=== PATIENT | female | born 1950 | race Caucasian/White ===

== ENCOUNTER → 2017-07-24 | Outpatient (CLI) | payer OTHER, BC ==
[~2017-07-24] MED LIST: LEVO50TA PO
[2017-07-24 12:56] LABS: BLOOD UREA NITROGEN 21 mg/dl (7-18); BUN/CREATININE RATIO 20.3 (10-20); CALCIUM 9.4 mg/dl (8.5-10.1); CARBON DIOXIDE 29 mmol/L (21-32); CHLORIDE 105 mmol/L (98-107); CHOLESTEROL 261 mg/dl (0-200); CREATININE 1.01 mg/dl (0.60-1.20); GLUCOSE 94 mg/dl (70-99); POTASSIUM 3.9 mmol/L (3.5-5.1); SODIUM 138 mmol/L (136-145); TRIGLYCERIDES 71 mg/dl (0-150); VERY LOW DENSITY LIPOPROT CALC 14 mg/dl
[2017-07-24 13:06] LABS: CHOLESTEROL/HDL RATIO 3.8; HDL CHOLESTEROL 69 mg/dl; LDL CHOLESTEROL CALCULATED 178 mg/dl
== END | disposition home or self-care (01) ==
LOC: C.LABPVFM 07:47
PROVIDERS: ATTEND Nurse Practitioner
DX: E78.5 Hyperlipidemia, unspecified (principal); E03.9 Hypothyroidism, unspecified

== ENCOUNTER → 2017-09-02 | Outpatient (CLI) | payer OTHER, BC ==
--- NOTE | 2017-09-03 15:09 | MAMMOGRAPHY REPORT ---
BILATERAL DIGITAL SCREENING MAMMOGRAM TOMOSYNTHESIS WITH CAD: 09/02/2017 CLINICAL HISTORY: Routine screening. Patient has no complaints. TECHNIQUE: Breast tomosynthesis in addition to standard 2D mammography was performed. Current study was also evaluated with a Computer Aided Detection (CAD) system. COMPARISON: Comparison is made to exams dated: 08/13/2016 mammogram, 08/04/2015 mammogram, 4 mammogram, 07/29/2013 mammogram, 07/28/2012 mammogram, and 07/23/2011 mammogram - [facility]. BREAST COMPOSITION: The tissue of both breasts is heterogeneously dense, which may obscure small mas ses. FINDINGS: The parenchymal pattern is unchanged. No developing mass, architectural distortion or clus ter of suspicious microcalcifications is seen in either breast. IMPRESSION: ACR BI-RADS CATEGORY 2: BENIGN There is no mammographic evidence of malignancy. A 1 year screening mammogram is recommended. The pa tient will receive written notification of the results. Approximately 10% of breast cancers are not detected with mammography. A negative mammographic report should not delay biopsy if a clinically suggestive mass is present. Cece Martínez M.D. ay/:09/02/2017 14:55:17 Replenishment Specialist: Malorie MAN(Monet)(M), [facility] letter sent: Normal 1/2 BI-RADS Code: ACR BI-RADS Category 2: Benign
== END | disposition home or self-care (01) ==
LOC: C.MAMM 14:25
PROVIDERS: ATTEND Nurse Practitioner
DX: Z12.31 Encounter for screening mammogram for malignant neoplasm of breast (principal)

== ENCOUNTER 2018-12-01 05:03 | Inpatient (IN) ==
--- NOTE | 2018-10-29 10:06 | Anesthesiology Consultation ---
Date of Service October 29, 2018 Assessment & Plan (1) Encounter for pre-operative examination: Chart Review Chart Review: Acceptable Risk for Surgery and Patient seen in Pre Admission Testing Consults Requested none Teaching & Discussion Pre-Anesthesia Teaching/Discussion Notes: Instructed NPO after midnight before surgery, except medications with 15 cc of water. Medication instructions provided according to the PAT guidelines. History Surgery Operation Date: 12/01/18 08:50 Proposed Procedures p Left Knee Arthroplasty Uni Compartment versus Total Knee Replacement - Kenneth Duong MD Height/Weight Height: 5 ft 2 in Weight: 59 kg Allergies Allergy/AdvReac Type Severity Reaction Status Date / Time No Known Allergies Allergy Verified 10/23/18 10:54 Medications Home Medications Medication Instructions Recorded Confirmed Last Taken latanoprostene bunod [Vyzulta] 1 drp OPL PM 10/23/18 10/23/18 Unknown levothyroxine 50 mcg PO QAM 10/23/18 10/23/18 Unknown multivitamin 1 tab PO DAILY 10/23/18 10/23/18 Unknown Past Medical History Medical History Cancer SKIN CANCER ON SCALP Glaucoma EYE DROPS LEFT EYE (PREVENTATIVE) Hypothyroidism Lyme disease Treated with doxycycline and steroid (July 2018) Osteoarthritis Ovarian cyst HX Past Surgical History Surgical History Family history of reaction to anesthesia FATHER-DELIRIUM AFTER ANESTHESIA IN HIS 90'S SHORTLY BEFORE PASSING AWAY H/O laparoscopy Ovarian cysts removed bilaterally H/O shoulder surgery RT History of anesthesia reaction SINCE SHOULDER SURGERY (20 YRS AGO) EARS HAVE BEEN RINGING EVERY SINCE. History of appendectomy History of colonoscopy History of tooth extraction Past Anesthesia History No Hx of Anesthesia Complications and No Family Hx of Anesthesia Complications (SEE ABOVE - Dad had delerium in his 90's after anesthesia. ) History of PONV Yes (Thinks so, but unsure. ) Motion Sickness Screening History of Motion Sickness: No Social History Smoking Status: Never smoker Do You Dip or Chew Tobacco: No Hx Alcohol Use: Yes Alcohol type: beer, wine and hard liquor alcohol intake frequency: holidays/special occasions only Hx Substance Use: No substance use type: does not use Exercise / Class Metabolic Activity II 4-5 Yardwork/Stairs/Walk up hill (Golfs, Kayaks, Gardens, In winter does aerobics daily. Able to climb FOS. Denies CP or SOB. ) Review of Systems Patient denies chest pain, shortness of breath, dyspnea on exertion, reflux, cough, wheezing, palpitations. +Joint pain (Knee) Physical Exam Vital Signs BP: 113/67 P: 62 R: 16 T: 98.1 SPO2: 99% on RA ENMT Thyromental Distance: < 3.5 Finger Breadths (3) Mallampati Class: II Neck normal visual inspection and trachea midline; neck extension not limited Respiratory normal respiratory effort Auscultation: lungs clear to auscultation bilaterally Cardiovascular Rate/Rhythm: regular rate and regular rhythm Heart Sounds: no murmur Vessels: no carotid bruit Neurologic moves all extremities Psychiatric Orientation: alert and oriented x 3 Testing Electrocardiogram Date: 10/29/18 Findings: + NSR @ (61) Chest X-Ray Date: 10/29/18 Findings: + NAD Other Testing Carotid Dopplers 01/05/13: Bilateral intimal thickening and minimally raised heterogeneous plaque in the bifurcation. No hemodynamically significant stenosis, however, is demonstrated bilaterally. Laboratory Results 10/29/18 10:44 10/29/18 10:44 Blood Type A Positive 10/29/18 10:44 Antibody Screen NEGATIVE 10/29/18 10:44 PT 10.3 Seconds (9.0-12.0) 10/29/18 10:44 INR 1.0 (0.9-1.1) 10/29/18 10:44 APTT 25.9 Seconds (21.0-31.0) 10/29/18 10:44
--- NOTE | 2018-10-29 10:32 | PAT Medication Instructions ---
Medication Instructions Date of Service October 29, 2018 Home Medications latanoprostene bunod [Vyzulta] 1 drp OPL PM levothyroxine 50 mcg PO QAM multivitamin 1 tab PO DAILY DO NOT take the morning of surgery multivitamin 1 tab PO DAILY Take morning of surgery With a small sip of water, OTHERWISE NOTHING TO EAT OR DRINK AFTER MIDNIGHT: levothyroxine 50 mcg PO QAM Take evening before surgery latanoprostene bunod [Vyzulta] 1 drp OPL PM Other Notes If you have any questions please call us at [phone] or [phone] or [phone] or [phone]
--- NOTE | 2018-10-29 11:09 | XRay Report ---
XR chest Pre-admission PA/Lat CLINICAL HISTORY: Preoperative chest COMPARISON STUDY: No previous studies for comparison. FINDINGS: The cardiac and mediastinal contours are normal. There is no evidence of focal pulmonary co nsolidation. There is no evidence of failure. No pleural effusions are visualized.[ IMPRESSION: No active disease in the chest. Electronically signed by: Mitch Kwong M.D. 10/29/2018 11:08 AM
[2018-10-29 11:20] LABS: Basophils # (auto) 0.04 K/uL (0-0.2); Basophils % (auto) 0.6 %; Eosinophils % (auto) 1.4 %; Hematocrit (blood only) 41.8 % (37-47); Hemoglobin 13.9 g/dL (12.0-16.0); Immature Granulocytes # (auto) 0.02 K/uL (0.00-0.02); Immature Granulocytes % (auto) 0.3 %; Lymphocytes # (auto) 1.55 K/uL (1.2-3.4); Lymphocytes % (auto) 22.2 %; Mean Corpuscular Hgb Conc 33.3 g/dL (32-36); Mean Corpuscular Volume 89.3 fL (80-100); Mean Platelet Volume 9.8 fL (7.4-10.4); Monocytes # (auto) 0.48 K/uL (0.11-0.59); Monocytes % (auto) 6.9 %; Neutrophils # (auto) 4.78 K/uL (1.4-6.5); Neutrophils % (auto) 68.6 %; Platelet Count 316 K/uL (130-400); RDW Coefficient of Variation 13.9 % (11.5-14.5); RDW Standard Deviation 45.7 fL (36.4-46.3); Red Blood Count 4.68 M/uL (4.2-5.4); White Blood Count 6.97 K/uL (4.8-10.8)
[2018-10-29 11:31] LABS: Partial Thromboplastin Time 25.9 Seconds (21.0-31.0); Prothrombin Time 10.3 Seconds (9.0-12.0)
[2018-10-29 11:46] LABS: BUN Creatinine Ratio 15.7 (10-20); Calcium 9.2 mg/dl (8.5-10.1); Creatinine Clr Calc Pharmacy 48.9 ml/min; Est GFR (African American) 79.3; Est GFR (Non-African American) 68.5; Potassium 4.3 mmol/L (3.5-5.1)
--- NOTE | 2018-11-28 11:34 | History and Physical Report ---
DATE OF ADMISSION: 12/01/2018 CHIEF COMPLAINT: Left knee pain and discomfort. HISTORY OF PRESENT ILLNESS: A 68-year-old female who presents for surgical treatment of her left knee. She has had a several year history of increased left knee pain and discomfort and recurrent and rupturing Desouza cyst. Pain is mostly medial, but some posterior. The cyst occasionally ruptures and bothers her for several months. She has difficulty bending or squatting. She has difficulty going up and down stairs. She likes to garden and has difficulty bending and doing outside activities. The more she walks, the more it hurts. She has had this Desouza cyst drained on several occasions by her son who is a sheet metal worker [place] She would like to proceed with more definitive treatment. PAST MEDICAL HISTORY: 1. Hypothyroidism. 2. Basal cell skin cancer. PREVIOUS SURGERIES: Include: 1. Ovarian cyst removal. 2. Appendectomy. 3. Fibroid removal. 4. Shoulder surgery. ALLERGIES: None. CURRENT MEDICATIONS: 1. Levoxyl. 2. Vyzulta eye drops. SOCIAL HISTORY: A 68-year-old female. She lives in [place]. Quite active. Enjoys gardening. She is . Rare alcohol intake. Two children. One son is a sheet metal worker maintenance. No smoking history. FAMILY HISTORY: Significant for heart disease and skin cancer. REVIEW OF HISTORY: Negative for diabetes, neurologic problems, vascular problems or bleeding disorders. No chest pain or shortness of breath. No history of DVT or PE. No known bleeding problems. PHYSICAL EXAMINATION: GENERAL: Reveals a healthy pleasant, middle-aged female. Looks to be in excellent health. HEENT: Benign. NECK: Supple. No lymphadenopathy. LUNGS: Clear to auscultation. HEART: Regular rate and rhythm. ABDOMEN: Soft, nontender, nondistended. EXTREMITIES: Grossly neurovascularly intact except as follows: Examination of left knee reveals patient ambulates independently. She does not really have any significant limp. She has got slight varus alignment to her knee. She does have a moderate-sized knee effusion. She is tender over the medial joint line. Fairly minimal Desouza cyst on exam posteriorly. No varus or valgus instability. Range of motion 0-125. Her ACL is intact. X-RAYS: X-rays of the left knee are reviewed. It shows fairly advanced medial compartment arthritis. She has got near complete loss of her medial joint space. The remainder of the knee looks pretty good. With lateral stress testing, the medial side opens up and lateral side is well maintained. ASSESSMENT: A 68-year-old white female with a several year history of increasing left knee pain and discomfort consistent with medial compartment arthritis. She has failed conservative treatment and would like to proceed with surgical management. She is really interested in doing a partial knee replacement. PLAN: We are going to take her to the operating room and plan on doing a partial knee replacement. If we get in there and it is too bad, we will do a full knee replacement. The risks and benefits of partial versus full knee replacement were explained to the patient and include but not limited to DVT, PE, , infection, neurological injury, vascular injury, bleeding problems, pain, limited range of motion, stiffness, failure to relieve her symptoms, incomplete relief of symptoms, need for further surgery in future, fracture, leg length inequality, nerve palsy, dislocation, and need for further surgery. The patient understands and desires to proceed. Informed consent was obtained.
[2018-12-01] MEDS ORDERED: BUPIVACAINE LIPOSOME/PF 266 MG, BUPIVACAINE/EPINEPHRINE 50 ML, SODIUM CHLORIDE 0.9% 30 ... INFIL SCH (06:00)
[2018-12-01] MEDS ORDERED: METOCLOPRAMIDE HCL 10 MG TABLET PO SCH (06:00)
[2018-12-01] MEDS ORDERED: CEFAZOLIN 2000MG 2,000 MG/15 ML SYR IV SCH (06:00)
[2018-12-01] MEDS ORDERED: GABAPENTIN 300 MG PO SCH (06:00)
[2018-12-01] MEDS ORDERED: FAMOTIDINE 20 MG TAB PO SCH (06:00)
[2018-12-01] MEDS ORDERED: LR 60ML/HR IV SCH (06:00)
[2018-12-01] MEDS ORDERED: SCOPOLAMINE 1.5 MG TDSY TD SCH (06:00)
[2018-12-01] MEDS ORDERED: LR 500ML BOLUS, THEN 15ML/HR IV SCH (06:00)
[2018-12-01] MEDS ORDERED: ACETAMINOPHEN 500 MG TAB PO SCH (06:00)
[2018-12-01] MEDS ORDERED: BACITRACIN INJ 50,000 UNIT VIAL ONE (06:27)
[2018-12-01] MEDS ORDERED: BUPIVACAINE LIPOSOME 1.3% 266 MG/20 ML VIAL ONE (06:27)
[2018-12-01] MEDS ORDERED: SODIUM CHLORIDE 0.9% PF 50 ML VIAL ONE (06:27)
[2018-12-01] MEDS ORDERED: BUPIVACAINE 0.25% 30 ML VIAL ONE (06:29)
[2018-12-01] MEDS ORDERED: ROPIVACAINE 0.5% 5 MG/ML 30 ML VIAL ONE (06:30)
[2018-12-01] MEDS ORDERED: BUPIVACAINE 0.5 % 5 MG/1 ML PF 10ML VIAL ONE (06:30)
[2018-12-01] MEDS ORDERED: TRANEXAMIC ACID 1,000 MG **IV Intra-op IV SCH (06:30)
[2018-12-01] MEDS ORDERED: ONDANSETRON INJ 2 MG/ML 2 ML VIAL IV PRN ×2 (06:46→09:47)
[2018-12-01] MEDS ORDERED: ePHEDrine sulfate 50 MG/ML AMP IV PRN (06:46)
[2018-12-01] MEDS ORDERED: ATROPINE SULFATE 0.1 MG/ML 10ML SYR IV PRN (06:46)
[2018-12-01] MEDS ORDERED: HYDROmorphone INJ 1 MG/ML SYRINGE IV PRN (06:46)
[2018-12-01] MEDS ORDERED: KETOROLAC TROMETHAMINE 15 MG/ML VIAL IV PRN (06:46)
[2018-12-01] MEDS ORDERED: PHENYLEPHRINE 100MCG/ML 5ML SYR IV PRN (06:46)
[2018-12-01] MEDS ORDERED: fentaNYL citrate 100 MCG/2 ML VIAL ONE ×2 (06:47→07:53)
[2018-12-01] MEDS ORDERED: MIDAZOLAM HCL 1 MG/ML 2ML VIAL ONE ×2 (06:47→07:52)
--- NOTE | 2018-12-01 06:49 | History & Physical Bridge Note ---
Date of Service December 01, 2018 History & Physical Bridge Note I have examined the patient, reviewed the History & Physical and in the interval since the performance of the History & Physical I have noted the following changes of clinical significance: no changes noted
[2018-12-01] MEDS ORDERED: ONDANSETRON INJ 2 MG/ML 2 ML VIAL ONE (07:24)
[2018-12-01] MEDS ORDERED: LIDOCAINE HCL 2% 2 ML VIAL/AMP(20MG/ML) INFIL ONE (07:24)
[2018-12-01] MEDS ORDERED: PROPOFOL IV EMULSION 10 MG/ML 20 ML VIAL IV ONE (07:24)
--- NOTE | 2018-12-01 08:46 | Post Operative Brief Note ---
Immediate Post Op Note v1 Date of Surgery December 01, 2018 Pre & Post Diagnosis Operation Date: 12/01/18 07:00 Pre-Op Diagnosis: Knee Degenerative Joint Disease , Left Post-Op Diagnosis: Knee Degenerative Joint Disease, Left Procedure Operation Date: 12/01/18 07:00 Actual Procedures p Left Knee Arthroplasty Uni Compartment(Left) - Kenneth Duong MD Surgeon Kenneth Duong MD Resist Coater Developer Opal, PAC Estimated Blood Loss 30 Findings Consistent with Post-Op Diagnosis Specimens Left Knee Drains Sotelo Catheter (16 fr sotelo placed by Dr. Duong without difficulty with return clear yellow urine output to be monitored by anesthesia.) Anesthesia Type Spinal MAC Complications none Disposition Accompanied Patient To Recovery: No Disposition: Recovery Room
--- NOTE | 2018-12-01 09:15 | XRay Report ---
XR knee LT 2V routine CLINICAL HISTORY: Surgical Post Op COMPARISON: 07/07/2018 DISCUSSION: There are postsurgical changes of a medial joint compartment arthroplasty. There are over lying skin jens. There is air within the soft tissues consistent with the history of recent surger y. IMPRESSION: Postsurgical changes of a medial joint compartment arthroplasty. Electronically signed by: Mitch Kwong M.D. 12/01/2018 9:13 AM
--- NOTE | 2018-12-01 09:29 | Anesthesiology Progress Note ---
Date of Service December 01, 2018 Anesthesia Post Procedure Vital Signs Vital Signs: Temp Pulse Pulse Resp BP Pulse Ox 12/01/18 09:20 58 L 20 142/78 H 93 12/01/18 09:14 36.6 C 98 12/01/18 09:10 58 L 15 105/68 98 12/01/18 09:00 60 15 100/67 96 12/01/18 08:52 37.3 C 71 16 99/69 L 96 12/01/18 05:30 36.5 C 62 18 144/68 H 97 Pain Intensity Left Knee: Pain Intensity: 0 Notes Mental Status: alert / awake / arousable Patient Amnestic to Procedure: Yes Nausea / Vomiting: adequately controlled Pain: adequately controlled Airway Patency, RR, SpO2: stable & adequate BP & HR: stable & adequate Hydration State: stable & adequate Neuraxial Anesthesia: was administered and sensory block is resolving Anesthetic Complications: no major complications apparent
[2018-12-01] MEDS ORDERED: ALUMINUM/MAGNESIUM SUSP 30 ML UDC PO PRN (09:47)
[2018-12-01] MEDS ORDERED: NALOXONE HCL 0.4 MG/1 ML VIAL/CARP IV PRN (09:47)
[2018-12-01] MEDS ORDERED: TRAMADOL HCL 50 MG TABLET PO PRN (09:47)
[2018-12-01] MEDS ORDERED: MULTIVITAMIN TAB PO SCH (09:47)
[2018-12-01] MEDS ORDERED: HYDROmorphone INJ 0.5 MG/0.5 ML SYR IV PRN (09:47)
[2018-12-01] MEDS ORDERED: MAGNESIUM HYDROXIDE SUSP 30 ML UDC PO PRN (09:47)
[2018-12-01] MEDS ORDERED: METOCLOPRAMIDE HCL INJ 5 MG/ML 2 ML VIAL IV PRN (09:47)
[2018-12-01] MEDS ORDERED: BISACODYL 10 MG SUPP PR PRN (09:47)
[2018-12-01] MEDS ORDERED: SODIUM CHLORIDE 0.9% 1000ML 1,000 ML IV SCH (09:50)
--- NOTE | 2018-12-01 10:40 | Operative Report ---
DATE OF OPERATION: 12/01/2018 SURGEON: Kenneth Duong MD COLLAR STARCHER: PIPPA Olivo PREOPERATIVE DIAGNOSIS: Left knee medial compartment degenerative joint disease. POSTOPERATIVE DIAGNOSIS: Left knee medial compartment degenerative joint disease. PROCEDURE PERFORMED: Left Biomet Zirconia mobile bearing partial knee replacement. COMPLICATIONS: None. ESTIMATED BLOOD LOSS: 30 mL. ANESTHESIA: Spinal with adductor canal block. DRAINS: None. SPECIMENS: Left knee sent for pathology. TOURNIQUET TIME: 61 minutes at 300 mmHg. OPERATIVE INDICATIONS: The patient is a 68-year-old female who has had a several-year history of increasing left knee pain and discomfort and more disability than anything. It is really starting to affect her quality of life, inability to maintain an active lifestyle and do things that she wanted to do. X-ray showed moderate to advanced medial compartment arthritis. She has had recurrent large knee effusions. She failed conservative treatment and elected to proceed with operative prevention. OPERATIVE FINDINGS: Operative findings revealed a fairly large knee joint effusion. She had a varus deformity to her knee. Her arthritic disease is really isolated to the medial compartment of her knee. She did have grade 4 changes, but no eburnation, just cartilage wear. The lateral and patellofemoral compartments were pretty well preserved. OPERATIVE IMPLANTS: Operative implants consisted of: 1. A Biomet Zirconia size small femoral component. 2. A Biomet left medial size AA tibial tray. 3. A 4 mm mobile-bearing insert. OPERATIVE PROCEDURE: The patient was taken to the operating room, identified and placed on the operating table in supine position. All contact areas were appropriately padded. IV antibiotics provided by anesthesia team. A spinal anesthetic and adductor canal block had been provided in the holding area. De La Rosa catheter was placed in sterile fashion. Left-thigh tourniquet was then placed and the left lower extremity was then prepped and draped in usual sterile fashion. The left leg was elevated and exsanguinated with Esmarch and tourniquet was placed at 300 mmHg. An anterior approach to the left knee was then performed through a longitudinal incision beginning at the superior pole of the patella and extending just medial to the tibial tubercle. Sharp dissection was carried through subcutaneous tissue down to the level of the extensor mechanism. A medial parapatellar arthrotomy incision was made. Some slight subperiosteal dissection was carried out medially. Great care was taken to protect the MCL. The osteophytes were taken off the intercondylar notch area. I then examined the knee and the lateral and patellofemoral compartments were well preserved. We elected to proceed with a partial knee replacement. The ACL was intact. The small spoon was placed over the distal femur. The external tibial alignment jig was then placed in the anterior face of the tibia and attached to the spoon with a 4G clamp. The tibial guide was then pinned in place. The proximal tibial cut was made. Tibia sized to a size AA. Attention was then drawn to the femur. The distal femur was entered with a sharp drill. Intramedullary guide was placed. The posterior cutting guide was placed and the posterior cut was made. The 0 spigot was then placed and the distal femur was milled. I then removed the medial meniscus. The trial femoral component and tibial tray were placed. The 4 feeler gauge fit appropriate in flexion and the 1 gauge in extension. The implants were then removed. The 3 spigot was then placed and the distal femur was milled again. We then trialed the knee and the 4 feeler gauge fit appropriately in flexion and extension. I then prepared the distal femur. The posterior osteophyte cutting guide was placed and the posterior osteophyte was removed along with the anterior osteophyte. The cement drill was used to create some holes in the distal femur for cement interdigitation. The tibial tray was then pinned and the toothbrush blade was used to create the keel for the tibial tray. We then trialed the knee again with the definitive trial implants and the 4 implant fit appropriately. We elected to place these implants. All trial implants were removed. The knee was irrigated with copious amounts of pulsatile lavage solution. I did inject locally with 100 mL of a combination of 20 mL of Exparel, 30 mL of normal saline, 50 mL of 0.25% Marcaine with epinephrine. The patient did receive 1 gram of tranexamic acid. A single batch of Palacos G cement was mixed. A left medial size AA tibial tray was then cemented in place followed by a small femoral component. I then placed the 4 feeler gauge and brought the knee out into about 30 degrees extension until cement hardened. A final cement check was then performed. We then trialed the knee again and the 4 insert fit appropriately. The permanent 4 implant was placed. The knee was well balanced and tracked appropriately. Attention was then drawn toward closing. The wound was irrigated with copious amounts of pulsatile lavage solution. The tourniquet was let down for a tourniquet time of 61 minutes. Hemostasis was assured with use of electrocautery. The extensor mechanism was then closed with #1 Vicryl suture in a [id number] fashion. The subcutaneous tissue was then closed with 2-0 Dexon suture in a buried interrupted fashion. Skin was closed with skin jens. Leg was then cleaned, dried and a sterile dressing of Xeroform, 4 x 4's, sterile cast padding, and an Lui bandage were then applied. The patient was then transferred to the recovery room in stable condition. The patient tolerated the procedure well with no complications. All needle and sponge counts were correct at the end of the operation. I attest to the content of the Intraoperative Record and any orders documented therein. Any exception s are noted below.
[2018-12-01] MEDS: KETOROLAC TROMETHAMINE 15 MG/ML VIAL IV SCH ×3 (12:16→21:42)
[2018-12-01] MEDS: MULTIVITAMIN TAB PO SCH (12:16)
[2018-12-01] MEDS: DOCUSATE SODIUM 100 MG CAP PO SCH ×2 (12:17→21:37)
[2018-12-01] MEDS: ASPIRIN 81 MG ECTAB PO SCH ×2 (12:17→21:38)
[2018-12-01] MEDS: ACETAMINOPHEN 500 MG TAB PO SCH ×2 (14:39→21:39)
[2018-12-01] MEDS: CHECK SCOPOLAMINE PATCH PLACEMENT SCH (14:44)
[2018-12-01] MEDS: CEFAZOLIN 1000MG 1,000 MG/7.5 ML SYR IV SCH ×2 (14:44→21:46)
--- NOTE | 2018-12-01 15:48 | Progress Note ---
DATE: 12/01/2018 SUBJECTIVE: A 68-year-old white female postop from a left partial knee replacement. She is doing well. Not having any pain yet. No chest pain or shortness of breath. Not feeling dizzy or lightheaded. OBJECTIVE: VITAL SIGNS: Temperature 36.5. Vital signs stable. GENERAL: Physical examination shows a pleasant, middle-aged female. She is sitting up in her bed and looks comfortable. She is talking to her . LUNGS: Clear to auscultation. HEART: Regular rate and rhythm. ABDOMEN: Soft, nontender, nondistended. EXTREMITIES: Grossly neurovascularly intact except as follows: Examination of the left lower extremity reveals the leg to be well aligned. She can dorsiflex and plantarflex her foot appropriately. She is neurologically intact. X-RAYS: X-ray of the left knee from recovery room revealed a partial knee replacement. Components are in good position. No signs of problems. ASSESSMENT: A 68-year-old white female postop from a left partial knee replacement, doing well. Pain is controlled. She is neurologically intact. PLAN: 1. DVT prophylaxis including thigh-high TEDs, SCDs, and aspirin twice a day. 2. PT/OT. Weight bear as tolerated. Left total knee protocol. 3. Pain control, doing well with current pain regimen. 4. Disposition: She is planning to be discharged to home with some home health once adequately recovered.
[2018-12-01] MEDS: FERROUS GLUCONATE 324 MG TAB PO SCH (17:25)
[2018-12-01] MEDS: ASCORBIC ACID 500 MG TAB PO SCH (17:25)
[2018-12-01] MEDS ORDERED: VYZULTA 0.024% OP SCH (21:00)
[2018-12-01] MEDS ORDERED: SENNA 8.6 MG TAB PO SCH (21:00)
[2018-12-02] MEDS: CHECK SCOPOLAMINE PATCH PLACEMENT SCH (00:05)
[2018-12-02] MEDS: ACETAMINOPHEN 500 MG TAB PO SCH ×2 (05:08→13:38)
[2018-12-02] MEDS: KETOROLAC TROMETHAMINE 15 MG/ML VIAL IV SCH ×2 (05:08→09:43)
[2018-12-02] MEDS ORDERED: LEVOTHYROXINE SODIUM 50 MCG TABLET PO SCH (06:30)
[2018-12-02 07:01] LABS: Hematocrit (blood only) 38.4 % (37-47); Hemoglobin 12.7 g/dL (12.0-16.0); Mean Corpuscular Hgb Conc 33.1 g/dL (32-36); Mean Corpuscular Volume 87.9 fL (80-100); Mean Platelet Volume 9.6 fL (7.4-10.4); Platelet Count 244 K/uL (130-400); RDW Coefficient of Variation 14.3 % (11.5-14.5); RDW Standard Deviation 46.3 fL (36.4-46.3); Red Blood Count 4.37 M/uL (4.2-5.4); White Blood Count 6.32 K/uL (4.8-10.8)
[2018-12-02 07:23] LABS: BUN Creatinine Ratio 16.2 (10-20); Calcium 8.8 mg/dl (8.5-10.1); Creatinine Clr Calc Pharmacy 46.8 ml/min; Est GFR (African American) 75.1; Est GFR (Non-African American) 64.8; Potassium 3.9 mmol/L (3.5-5.1)
[2018-12-02] MEDS: ASPIRIN 81 MG ECTAB PO SCH (08:17)
[2018-12-02] MEDS: DOCUSATE SODIUM 100 MG CAP PO SCH (08:18)
[2018-12-02] MEDS: MULTIVITAMIN TAB PO SCH (08:18)
[2018-12-02] MEDS: ASCORBIC ACID 500 MG TAB PO SCH (08:18)
[2018-12-02] MEDS: FERROUS GLUCONATE 324 MG TAB PO SCH (08:18)
--- NOTE | 2018-12-02 11:31 | Anesthesiology Progress Note ---
Date of Service December 02, 2018 Anesthesia Post Procedure Vital Signs Vital Signs: Temp Pulse Pulse Resp BP Pulse Ox 12/02/18 11:22 45 L 86/55 L 12/02/18 11:17 36.9 C 40 L 18 72/39 L 99 12/02/18 07:00 36.6 C 51 L 16 90/58 L 96 12/02/18 03:07 37.1 C 57 L 16 121/73 97 12/01/18 22:53 37.3 C 61 16 147/86 H 96 12/01/18 19:33 36.9 C 59 L 16 110/68 97 12/01/18 15:32 36.6 C 61 16 119/77 98 12/01/18 12:18 52 L 12 120/75 100 Pain Intensity Left Knee: Pain Intensity: 0 Notes Mental Status: alert / awake / arousable and participated in evaluation Patient Amnestic to Procedure: Yes Nausea / Vomiting: adequately controlled Pain: adequately controlled Airway Patency, RR, SpO2: stable & adequate Hydration State: stable & adequate Neuraxial Anesthesia: was administered and sensory block is resolving Anesthetic Complications: no major complications apparent and Pt Satisfied with anesthetic care
--- NOTE | 2018-12-02 11:57 | Progress Note ---
DATE: 12/02/2018 SUBJECTIVE: A 68-year-old white female postop day 1 from a left partial knee replacement. She is doing well. Pain is controlled. No chest pain or shortness of breath. Not feeling dizzy or lightheaded. Therapy went pretty well. PHYSICAL EXAMINATION: GENERAL: Reveals a pleasant middle-aged female sitting up in her bedside chair, looks pretty comfortable. EXTREMITIES: Examination of the left leg reveals the dressing to be clean, dry and intact. Not much swelling. She can do a good straight leg raise. She can dorsiflex and plantarflex her foot appropriately. She is neurologically intact. LABORATORY DATA: Hemoglobin is 12.7. Hematocrit 38.4. Electrolytes are stable. ASSESSMENT: A 68-year-old white female postop day 1 from a left partial knee replacement, doing well. Her pain is controlled. PLAN: 1. DVT prophylaxis including thigh-high TEDs, SCDs, and aspirin for 1 month. 2. PT/OT. She can weight bear as tolerated. Left total knee protocol. 3. Pain control, doing pretty well with current pain regimen. Will continue using Tylenol and tramadol only if needed. 4. Disposition: Plan to discharge to home. She is going to do outpatient therapy.
[2018-12-02] MEDS ORDERED: VYZULTA 0.024% OPL SCH (21:00)
--- NOTE | 2018-12-08 07:46 | Discharge Summary ---
ADMITTING PHYSICIAN AND SURGEON: Kenneth Duong MD ADMITTING DIAGNOSIS: Left knee medial compartment degenerative joint disease. SURGERY PERFORMED: Left partial knee replacement. SECONDARY DIAGNOSES: Hypothyroidism and basal cell skin cancer. CONSULTS: None obtained. HISTORY AND PHYSICAL EXAMINATION: Well documented in the patient's chart. HOSPITAL COURSE: The patient was admitted on 12/01/2018, underwent partial knee replacement, tolerated the procedure well. There were no complications. She was transferred to the PACU postoperatively and later to the orthopedic floor for further care. She was given Ancef for antibiotic prophylaxis, ROBERTO stockings, SCDs and aspirin for DVT prophylaxis. Hemoglobin, hematocrit and vital signs monitored during hospital stay and remained stable. She did not require any blood transfusions. There were no complications. By postoperative day 1, she was tolerating a regular diet, pain was controlled with oral pain medicine. She was participating in physical therapy. On postop day 1, she was discharged home. She was given printed discharge instructions including new prescriptions for extra-strength Tylenol, aspirin and tramadol. Continue her home medicines. Continue physical therapy, weightbearing as tolerated, ROBERTO stockings. Follow up approximately 2 weeks postoperatively or sooner if there are any problems or concerns.
== END 2018-12-02 14:39 | disposition home or self-care (01) | DRG 470 ==
LOC: ASU 05:03 → 3E 09:37